=== PATIENT | male | born 1965 | race Caucasian/White ===

== ENCOUNTER 2017-01-05 20:48 | Inpatient (IN) | payer MEDICAID ==
[~2017-01-05] VITALS: Ht 170.2 cm; Wt 71.5 kg
[2017-01-05] MEDS ORDERED: SOD CHLORIDE 0.9% 1,000 ML IV STA (21:33)
[2017-01-05 22:13] LABS: BASOPHILS % 0.5 % (0.0-2.0); EOSINOPHILS # 0.1 10^3/ul (0.0-0.5); EOSINOPHILS % 1.2 % (0.0-7.0); HEMATOCRIT 30.5 % (42.0-52.0); HEMOGLOBIN 10.9 g/dl (14.0-18.0); LYMPHOCYTES # 0.9 10^3/ul (0.8-2.9); LYMPHOCYTES % 21.9 % (15.0-51.0); MEAN CORPUSCULAR HEMOGLOBIN 28.4 pg (29.0-33.0); MEAN CORPUSCULAR HGB CONC 35.7 g/dl (32.0-37.0); MEAN CORPUSCULAR VOLUME 79.4 fl (82.0-101.0); MEAN PLATELET VOLUME 10.7 fl (7.4-10.4); MONOCYTE # 0.3 10^3/ul (0.3-0.9); MONOCYTES % 7.6 % (0.0-11.0); NEUTROPHIL # 2.8 10^3/ul (1.6-7.5); NEUTROPHILS % 68.6 % (39.0-77.0); PLATELET COUNT 103 10^3/UL (140-415); POSITIVE DIFF @See below; RED BLOOD COUNT 3.84 10^6/ul (4.70-6.10); WHITE BLOOD COUNT 4.1 10^3/ul (4.8-10.8)
--- NOTE | 2017-01-05 22:17 | ERA ---
ER Documentation Chief Complaint Date/Time DATE: 01/05/17 TIME: 22:14 Chief Complaint yellow eyes x 1 month, painful hands and both feet HPI Patient presents with a chief complaint of yellowing of the eyes 1 month. Patient also complains of stomach distention that comes and goes for the past 2 weeks. Patient is a chronic alcohol user. Admits to drinking every day and has no preference on alcoholic beverage. Denies recreational drug use. Has not been evaluated for this condition. Also complains of minimal abdominal pain. Denies fever, chills, nausea, vomiting, recent travel, chest pain, shortness of breath. Patient does not take any medications. ROS All systems reviewed and are negative except as per history of present illness. Allergies Allergies: Coded Allergies: No Known Allergy (Unverified , 08/20/14) PMhx/Soc Medical and Surgical Hx: pt denies Medical Hx, pt denies Surgical Hx Hx Alcohol Use: Yes Hx Substance Use: No Hx Tobacco Use: No Smoking Status: Never smoker Physical Exam Vitals Vital Signs Date Time Temp Pulse Resp B/P Pulse Ox O2 Delivery O2 Flow Rate FiO2 01/05/17 20:51 97.5 88 20 161/82 100 Physical Exam Const: 51-year-old male in no acute distress Head: Atraumatic Eyes: Normal Conjunctiva ENT: Jaundice. Normal External Ears, Nose and Mouth. Neck: Full range of motion..~ No meningismus. Resp: Clear to auscultation bilaterally Cardio: Regular rate and rhythm, no murmurs Abd: Mild tenderness in the right upper quadrant. Liver not palpated. Soft , non tender, non distended. Normal bowel sounds Skin: Diffuse jaundice. No petechiae or rashes Back: No midline or flank tenderness Ext: No cyanosis, or edema Neur: Awake and alert Psych: Normal Mood and Affect Result Diagram: 01/05/17219901/05/172199 Results 24 hrs Laboratory Tests Test 01/05/17 22:00 01/05/17 22:45 White Blood Count 4.110^3/ul Red Blood Count 3.8410^6/ul Hemoglobin 10.9g/dl Hematocrit 30.5% Mean Corpuscular Volume 79.4fl Mean Corpuscular Hemoglobin 28.4pg Mean Corpuscular Hemoglobin Concent 35.7g/dl Red Cell Distribution Width 19.0% Platelet Count 79553^3/UL Mean Platelet Volume 10.7fl Neutrophils % 68.6% Lymphocytes % 21.9% Monocytes % 7.6% Eosinophils % 1.2% Basophils % 0.5% Nucleated Red Blood Cells % 0.0/100WBC Neutrophils # 2.810^3/ul Lymphocytes # 0.910^3/ul Monocytes # 0.310^3/ul Eosinophils # 0.110^3/ul Basophils # 0.010^3/ul Nucleated Red Blood Cells # 0.010^3/ul Prothrombin Time 20.4Sec Prothrombin Time Ratio 1.6 INR International Normalized Ratio 1.73 Activated Partial Thromboplast Time 45.4Sec Sodium Level 137mmol/L Potassium Level 3.2mmol/L Chloride Level 96mmol/L Carbon Dioxide Level 26mmol/L Anion Gap 18 Blood Urea Nitrogen 11mg/dl Creatinine 0.83mg/dl Glucose Level 91mg/dl Calcium Level 8.0mg/dl Total Bilirubin 8.5mg/dl Direct Bilirubin 6.90mg/dl Indirect Bilirubin 1.6mg/dl Aspartate Amino Transf (AST/SGOT) 302IU/L Alanine Aminotransferase (ALT/SGPT) 132IU/L Alkaline Phosphatase 224IU/L Total Protein 6.8g/dl Albumin 3.0g/dl Globulin 3.80g/dl Albumin/Globulin Ratio 0.78 Lipase 60U/L Urine Color ALISON Urine Clarity SLIGHTLY CLOUDY Urine pH 6.0 Urine Specific [place] 1.010 Urine Ketones TRACEmg/dL Urine Nitrite NEGATIVEmg/dL Urine Bilirubin 2+mg/dL Urine Urobilinogen 1+mg/dL Urine Leukocyte Esterase NEGATIVELeu/ul Urine Microscopic RBC 1/HPF Urine Microscopic WBC 3/HPF Urine Bacteria FEW/HPF Urine Mucus FEW/HPF Urine Hemoglobin NEGATIVEmg/dL Urine Glucose NEGATIVEmg/dL Urine Total Protein NEGATIVEmg/dl Current Medications Medications (Trade) Dose Ordered Sig/Sue Route PRN Reason Start Time Stop Time Status Last Admin Dose Admin Sodium Chloride (NS) 1,000 ml @ 1,000 mls/hr Q1H STAT IV 01/05/17 21:33 01/05/17 22:32 DC 01/05/17 21:52 Procedures/MDM Patient is presenting with a one-month history of becoming more yellow and mild abdominal tenderness 2 weeks. Due to the patient's abdominal tenderness we will go ahead and get a workup including CBC, CMP, lipase, ultrasound of the right upper quadrant, urinalysis. Results of the labs were as follows: PT 20.4 , white blood cell 4.1, MCV 79.4, platelet count 103, potassium 3.2, anion gap 18, calcium 8, total bilirubin 8.5, AST 302, ALT 132, alk phos 224, albumin 3.0. Urinalysis revealed 2+ bilirubin, trace ketones and trace white blood cells. Results of the ultrasound read by the radiologist given the following impression: IMPRESSION: 1. Gallbladder wall thickening and mild pericholecystic fluid, but no evidence of cholelithiasis. These findings are nonspecific, but may relate to acalculous cholecystitis, liver failure, heart failure, or pancreatitis. 2. No biliary dilatation. 3. Hepatomegaly and fatty infiltration of the liver. I presented the case to my attending Dr. Miramontes. He will be taken over the case at this time. Departure Diagnosis: Primary Impression: Multiple complaints Additional Impressions: Alcohol abuse Liver failure Qualified Code: K72.90 - Liver failure without hepatic coma, unspecified chronicity Condition: Stable Additional Instructions: Patient care being transferred to PABLO Alaniz PA-C Jan 05, 2017 22:17
--- NOTE | 2017-01-05 22:26 | RADRPT ---
PROCEDURE: Right upper quadrant ultrasound. CLINICAL INDICATION: Abdominal pain. TECHNIQUE: Multiple real-time longitudinal and transverse images of the right upper quadrant of th e abdomen were acquired utilizing a curved array transducer. Images were reviewed on a high-resoluti on PACS workstation. COMPARISON: None. FINDINGS: The pancreas head and body are unremarkable. The pancreas tail is not well seen. The liver is echogenic. The liver measures 22.1 cm in length. No hepatic lesion or intrahepatic bi liary ductal dilatation is seen. The portal vein is patent with hepatopetal flow. No gallstones or sludge are seen within the gallbladder lumen. The gallbladder wall is mildly thick ened. There is mild pericholecystic fluid. The common bile duct measures 6 mm in diameter, not dila valarie. The right kidney measures 9.8 cm in length. Renal echogenicity is normal. There is no hydronephros is, urinary calculus, or renal mass. The visualized portions of the aorta and IVC are unremarkable. IMPRESSION: 1. Gallbladder wall thickening and mild pericholecystic fluid, but no evidence of cholelithiasis. T hese findings are nonspecific, but may relate to acalculous cholecystitis, liver failure, heart fail ure, or pancreatitis. 2. No biliary dilatation. 3. Hepatomegaly and fatty infiltration of the liver. RPTAT: HTAR .Osiel Ribeiro MD, MD Date Time Electronically viewed and signed by .Osiel Ribeiro MD, on 01/05/2017 22:25 .R/
[2017-01-05 22:27] LABS: INR 1.73; PROTIME 20.4 Sec (12.2-14.2); PT RATIO 1.6
[2017-01-05 22:28] LABS: PARTIAL THROMBOPLASTIN TIME 45.4 Sec (25.0-35.0)
[2017-01-05 22:35] LABS: ALBUMIN/GLOBULIN RATIO 0.78; BILIRUBIN,DIRECT 6.9 mg/dl (0.00-0.20); BILIRUBIN,INDIRECT 1.6 mg/dl (0-1.1); BILIRUBIN,TOTAL 8.5 mg/dl (0.2-1.3); CREATININE 0.83 mg/dl (0.61-1.24); POTASSIUM 3.2 mmol/L (3.5-5.1); TOTAL PROTEIN 6.8 g/dl (6.1-8.1)
[2017-01-06 00:06] LABS: ADD UMIC NO; UR ASCORBIC ACID NEGATIVE (NEGATIVE); UR BACTERIA FEW /HPF (NONE SEEN); UR BILIRUBIN (Dip) 2+ mg/dL (NEGATIVE); UR BLOOD (Dip) NEGATIVE (NEGATIVE); UR CLARITY SLIGHTLY CLOUDY (CLEAR); UR COLOR AMBER (YELLOW); UR GLUCOSE (Dip) NEGATIVE (NEGATIVE); UR KETONES (Dip) TRACE mg/dL (NEGATIVE); UR LEUKOCYTE ESTERASE (Dip) NEGATIVE Leu/ul (NEGATIVE); UR MUCUS FEW /HPF (NONE SEEN); UR NITRITE (Dip) NEGATIVE (NEGATIVE); UR RBC 1 /HPF (0-5); UR TOTAL PROTEIN (Dip) NEGATIVE (NEGATIVE); UR UROBILINOGEN (Dip) 1+ mg/dL (NEGATIVE)
[2017-01-06] MEDS ORDERED: PIPER-TAZO 3.375 GM IV (PMX) 100 ML IVPB ONE (00:30)
[2017-01-06 00:36] VITALS: TEMP 97.7
[2017-01-06 01:21] VITALS: BP 129/63; PULSE 74; RESP 18; Ht 170.2 cm; Wt 71.5 kg
[2017-01-06] MEDS ORDERED: NACL 0.9% 3 ML SYG IV SCH (01:30)
[2017-01-06] MEDS ORDERED: ONDANSETRON 4 MG INJ IV PRN (01:30)
[2017-01-06] MEDS ORDERED: morphine 2 MG INJ IV PRN (01:30)
[2017-01-06] MEDS ORDERED: ACETAMINOPHEN 325 MG TAB PO PRN (01:30)
[2017-01-06] MEDS ORDERED: BISACODYL (EC) 5 MG TAB PO PRN (01:30)
[2017-01-06] MEDS ORDERED: DOCUSATE SODIUM 100 MG CAP PO PRN (01:30)
[2017-01-06] MEDS: SOD CHLORIDE 0.9% 1,000 ML IV SCH ×2 (01:50→14:43)
[2017-01-06] MEDS ORDERED: LORAZEPAM 2 MG INJ IM PRN (02:00)
[2017-01-06] MEDS ORDERED: POTASSIUM CHLORIDE 250 ML IVPB ONE (02:00)
[2017-01-06 05:11] LABS: HAAIG REFLEX REFLEX FILED
--- NOTE | 2017-01-06 05:35 | HP ---
Date/Time of Note Date/Time of Note DATE: 01/06/17 TIME: 05:34 Assessment/Plan VTE Prophylaxis VTE Prophylaxis Intervention: SCD's Lines/Catheters IV [facility]ter [facility] (from [facility]): Peripheral IV Assessment/Plan Chief Complaint/Hosp Course This is a 51-year-old male being admitted to the [facility] floor for: #1 acalculous cholecystitis: Abdominal ultrasound: Gallbladder wall thickening and mild pericholecystic fluid, but no evidence of cholelithiasis. These findings are nonspecific, but may relate to acalculous cholecystitis, liver failure, heart failure, or pancreatitis. At the current time we will treat with Zosyn IV. Keep the patient n.p.o. Surgery on-call was consulted by the ED physician. There however is no signs of any fevers or elevated white blood cell count at this time. This likely could also be one of the other underlying etiologies as stated in the ultrasound read. I will be obtaining an MRCP as well as a complete abdominal ultrasound to further evaluate. We will also obtain a GI consult as well. #2 Painless jaundice: Patient appears to have an obstructive pattern with his LFTs and elevated bilirubin. Ultrasound did not show any signs of biliary dilatation or gallstones. Surgery has already been consulted for possible acalculous cholecystitis. I will also order an MRCP to further evaluate as well as an ultrasound complete of the abdomen. Patient does have a significant history of alcohol use. I will be ordering hepatitis panel as well as additional hepatic/GI set of labs. Depending on the findings patient may need a liver biopsy as well. #3 alcohol abuse: Patient has a significant alcohol history. At the current time he does not appear to be in any withdrawal symptoms or DTs. I will start him on Ativan 1 mg every 6 hours as needed for withdrawal. I will also put him on a banana bag daily as well as Librium. #4 Microcytic anemia: We will check iron studies this likely could be related to patient's chronic alcohol use. #5 Elevated blood pressure readings: We will continue to monitor for signs of hypertension and start medications if indicated. #6 Abnormal coagulation studies: INR 1.7 and elevated PTT and PT this likely to be secondary to underlying possible liver disease. Will initiate further workup for underlying liver disease as per #2, if negative, proceed further with hematology/oncology if indicated. #7 DVT and GI prophylaxis: SCDs, Protonix Further treatment strategy will be implemented as per the clinical course Problems: HPI/ROS Admit Date/Time Admit Date/Time Jan 06, 2017 at 00:11 Hx of Present Illness Chief complaint: Yellow eyes 1 month This is a 51-year-old male who presents with a chief complaint of yellowing of the eyes 1 month. Patient also complains of stomach distention that comes and goes for the past 2 weeks. Patient is a chronic alcohol user. Admits to drinking every day and has no preference on alcoholic beverage. Denies recreational drug use. Has not been evaluated for this condition. Also complains of minimal abdominal pain. Denies fever, chills, nausea, vomiting, recent travel, chest pain, shortness of breath. Patient does not take any medications. He states his last alcoholic drink was yesterday. Allergies: NKDA Medications: None ROS Const: As per HPI Eyes : As per HPI ENT: No pain, sore throat, congestion, congestion, dysphagia or discharge Respiratory: No shortness of breath, cough, sputum, wheezing, or pleuritic pain Cardiovascular: No chest pain, palpitation, PND, or edema GI : As per HPI Genitourinary: No dysuria, hematuria, flank pain , discharge or CVA tenderness Musculoskeletal: No joint pain, back pain, neck pain, restricted range of motion in neck or joints Skin: No rash, bruising or hives Neuro: No headache, dizziness, syncope, seizure, focal weakness Endocrine: No polyuria, polydipsia, temperature intolerance Psych: No hallucination, depression, anxiety or suicidal ideation PMH/Family/Social Past Medical History Medical History: no pertinent history Past Surgical History Past Surgical Hx: no surgical history Family History Significant Family History: no pertinent family hx Social History Alcohol Use: heavy (Patient is a daily drinker for the last 30 years) Smoking Status: Never smoker Drug Use: none Exam/Review of Systems Vital Signs Vitals Vital Signs Date Time Temp Pulse Resp B/P Pulse Ox O2 Delivery O2 Flow Rate FiO2 01/06/17 01:21 97.4 74 18 129/63 100 Room Air Intake and Output 01/05/17 01/05/17 01/06/17 15:00 23:00 07:00 Intake Total 381 ml Balance 381 ml Exam Exam General: Patient is well-developed well-nourished The patient is alert oriented -3 lying comfortably in bed. HEENT: Atraumatic, normocephalic. Mild scleral icterus noted bilaterally Neck: Supple with full range of motion. No rigidity or meningismus Chest: Nontender Lungs: Clear to auscultation bilaterally no crackles rales or wheezing Heart: Normal S1-S2, Regular rhythm and rate. No murmur, S3, or S4 Abdomen: Soft, mild tenderness to palpation of the right upper quadrant, hepatomegaly noted on palpation, mild distention, normal bowel sounds. Extremities: Normal to inspection, no edema no cyanosis Neurologic: Normal mental status, speech normal, cranial nerves II through XII are intact, motor and sensory are intact, no focal weakness, no asterixis noted Additional Comments PROCEDURE: Right upper quadrant ultrasound. CLINICAL INDICATION: Abdominal pain. TECHNIQUE: Multiple real-time longitudinal and transverse images of the right upper quadrant of the abdomen were acquired utilizing a curved array transducer. Images were reviewed on a high-resolution PACS workstation. COMPARISON: None. FINDINGS: The pancreas head and body are unremarkable. The pancreas tail is not well seen. The liver is echogenic. The liver measures 22.1 cm in length. No hepatic lesion or intrahepatic biliary ductal dilatation is seen. The portal vein is patent with hepatopetal flow. No gallstones or sludge are seen within the gallbladder lumen. The gallbladder wall is mildly thickened. There is mild pericholecystic fluid. The common bile duct measures 6 mm in diameter, not dilated. The right kidney measures 9.8 cm in length. Renal echogenicity is normal. There is no hydronephrosis, urinary calculus, or renal mass. The visualized portions of the aorta and IVC are unremarkable. IMPRESSION: 1. Gallbladder wall thickening and mild pericholecystic fluid, but no evidence of cholelithiasis. These findings are nonspecific, but may relate to acalculous cholecystitis, liver failure, heart failure, or pancreatitis. 2. No biliary dilatation. 3. Hepatomegaly and fatty infiltration of the liver. RPTAT: HTAR .Osiel Ribeiro MD, Date Time Electronically viewed and signed by .Osiel Ribeiro MD, on 01/05/2017 22:25 Labs Result Diagram: 7/25/17 2200 7/25/17 2200 Medications Medications Current Medications Sodium Chloride (NS) 1,000 ml @ 75 mls/hr [id number] IV Last administered on 01/06 01:50; Admin Dose 75 MLS/HR; Start 01/06/17 at 01:23 Ondansetron HCl (Zofran Inj) 4 mg Q6H PRN IV NAUSEA AND/OR VOMITING; Start at 01:30 Acetaminophen (Tylenol Tab) 650 mg Q6H PRN PO PAIN LEVEL 1-3 OR FEVER; Start at 01:30 Morphine Sulfate (morphine) 2 mg Q4H PRN IV SEVERE PAIN LEVEL 7-10; Start 01/06 at 01:30 Docusate Sodium (Colace) 100 mg Q12H PRN PO CONSTIPATION; Start 01/06/17 at 01: 30 Bisacodyl 5 mg 5 mg DAILY PRN PO CONSTIPATION; Start 01/06/17 at 01:30 Piperacillin Sod/ Tazobactam Sod (Zosyn 3.375gm/ 100 ml (Pmx)) 100 ml @ 200 mls /hr Q6 IVPB ; Start 01/06/17 at 06:00 Lorazepam 1 mg 1 mg Q6H PRN IM AGITATION/ANXIETY; Start 01/06/17 at 02:00 Potassium Chloride 250 ml @ 62.5 mls/hr ONCE ONCE IVPB Last administered on 02:33; Admin Dose 62.5 MLS/HR; Start 01/06/17 at 02:00; Stop 01/06/17 at 05:59 Multivitamins/ Thiamine HCl/ Folic Acid/Sodium Chloride (Mvi Adult/ Vitamin B1/ Folic Acid/NS) 1,011.2 ml @ 125 mls/ hr DAILY@09 IVPB ; Start 01/06/17 at 09:00 SARAH GILES Jan 06, 2017 05:35
[2017-01-06 05:40] LABS: IRON 114 ug/dl (35-150)
[2017-01-06] MEDS: PIPER-TAZO 3.375 GM IV (PMX) 100 ML IVPB SCH ×4 (05:40→23:05)
[2017-01-06 05:50] LABS: TOTAL IRON BINDING CAPACITY 220 ug/dl (241-421)
[2017-01-06 06:33] LABS: HEPATITIS B CORE ANTIBODY NEGATIVE (NEGATIVE)
[2017-01-06 06:49] LABS: FOLATE 9.2 ng/ml (2.8-20.0)
--- NOTE | 2017-01-06 07:23 | RADRPT ---
PROCEDURE: US Abdomen limited . CLINICAL INDICATION: Abdominal distension, pain TECHNIQUE: Multiple real-time images were acquired of the patient's abdomen utilizing a high resol ution transducer. COMPARISON: None FINDINGS: There is no evidence of ascites. RPTAT: AA IMPRESSION: No evidence of ascites. .Jas Oseguera MD, MD Date Time Electronically viewed and signed by .Jas Oseguera MD, MD on 01/06/2017 07:23 .S/
--- NOTE | 2017-01-06 07:34 | CONS ---
Date/Time of Note Date/Time of Note DATE: 01/06/17 TIME: 07:25 Assessment/Plan Assessment/Plan Chief Complaint/Hosp Course 1. Transaminitis, hyperbilirubinemia, gallbladder wall thickening, pericholecystic fluid, fatty liver are all probably secondary to alcoholic liver disease/failure. Doubt this is cholecystitis. -Encourage alcoholic cessation and rehab -GI consultation and treatment -Trend labs 2. Alcoholism -Highly encouraged to seek rehab and treatment to prevent further injury 3. Coagulopathy secondary to above -As above -Correct as needed 4. Pancytopenia secondary to above -As above -Consider heme consult 5. Hypoalbuminemia secondary to liver disease, alcoholism, possible malnutrition -As above -Encourage nutritional optimization 6. Electrolyte abnormalities -Replete and correct as needed Thank you very much for consulting me in this patient's care, Problems: Consultation Date/Type/Reason Admit Date/Time Jan 06, 2017 at 00:11 Date of Consultation: Jan 06, 2017 Type of Consultation: General surgical Reason for Consultation Jaundice and icterus Abnormal gallbladder wall thickening and pericholecystic fluid on ultrasound Hyperbilirubinemia Transaminitis Heavy drinker Referring Provider: OLGA COLE Hx of Present Illness Kelvin Erickson is a 51-year-old male heavy drinker who presents with a chief complaint of yellowing of the eyes and skin 2 months. He also reports bloating in the past 2 weeks. Patient is a chronic alcohol user. Admits to drinking every day and has no preference on alcoholic beverage. Denies recreational drug use. Has not been evaluated for this condition. Denies pain. Denies fever, chills, nausea, vomiting, recent travel, chest pain, shortness of breath. Patient does not take any medications. Denies visual or neurologic changes. Denies dysuria or change in bowel habits. Denies trauma or sick contacts. Denies previous history of the same. His workup was identified his vitals to be stable. He has transaminitis and hyperbilirubinemia. WBC is normal. Ultrasound of the abdomen identifies gallbladder wall thickening and pericholecystic fluid with fatty liver however no gallstones. Surgical consult is obtained further evaluation and treatment. Const: As per HPI Eyes : As per HPI ENT: No pain, sore throat, congestion, congestion, dysphagia or discharge Respiratory: No shortness of breath, cough, sputum, wheezing, or pleuritic pain Cardiovascular: No chest pain, palpitation, PND, or edema GI : As per HPI Genitourinary: No dysuria, hematuria, flank pain , discharge or CVA tenderness Musculoskeletal: No joint pain, back pain, neck pain, restricted range of motion in neck or joints Skin: No rash, bruising or hives Neuro: No headache, dizziness, syncope, seizure, focal weakness Endocrine: No polyuria, polydipsia, temperature intolerance Psych: No hallucination, depression, anxiety or suicidal ideation Lymphatics: Nonpalpable nontender Past Medical History Alcoholism Jaundice Icterus Coagulopathy Pancytopenia Hypokalemia Hypoalbuminemia Past Surgical History Past Surgical Hx: no surgical history Family History Significant Family History: no pertinent family hx Social History Alcohol Use: heavy (Patient is a daily drinker for the last 30 years) Smoking Status: Never smoker Drug Use: none Exam/Review of Systems Vital Signs Vitals Vital Signs Date Time Temp Pulse Resp B/P Pulse Ox O2 Delivery O2 Flow Rate FiO2 01/06/17 01:21 97.4 74 18 129/63 100 Room Air Intake and Output 01/05/17 01/05/17 01/06/17 15:00 23:00 07:00 Intake Total 575 ml Balance 575 ml Exam Constitutional: alert, oriented, No distress Psych: nl mood/affect, No anxiety Head: atraumatic, normocephalic, No lacerations Eyes: EOMI, PERRL, icteric ENMT: nl external ears & nose, nl lips & teeth, nl nasal mucosa & septum Neck: non-tender, supple, No jvd Respiratory: normal air movement, No congested cough, No labored breathing Cardiovascular: regular rate and rhythm, No edema Gastrointestinal: distended (Minimal), non-tender, soft, No rebound or guarding Genitourinary - Male: nl penis, nl scrotum Musculoskeletal: nl extremities to inspection, nl gait and stance, No joint tenderness Extremities: normal pulses, No calf tenderness, No cyanosis Neurological: nl mental status, nl speech, nl strength Skin: nl turgor, rash or lesions (Jaundice), No diaphoresis Lymph: nl lymph nodes Results Result Diagram: 01/05/17219901/05/172199 Results 24 hrs Laboratory Tests Test 01/05/17 22:00 01/05/17 22:45 01/06/17 04:35 01/06/17 04:36 White Blood Count 4.1 L Red Blood Count 3.84 L Hemoglobin 10.9 L Hematocrit 30.5 L Mean Corpuscular Volume 79.4 L Mean Corpuscular Hemoglobin 28.4 L Mean Corpuscular Hemoglobin Concent 35.7 Red Cell Distribution Width 19.0 H Platelet Count 103 L Mean Platelet Volume 10.7 H Neutrophils % 68.6 Lymphocytes % 21.9 Monocytes % 7.6 Eosinophils % 1.2 Basophils % 0.5 Nucleated Red Blood Cells % 0.0 Neutrophils # 2.8 Lymphocytes # 0.9 Monocytes # 0.3 Eosinophils # 0.1 Basophils # 0.0 Nucleated Red Blood Cells # 0.0 Prothrombin Time 20.4 H Prothrombin Time Ratio 1.6 INR International Normalized Ratio 1.73 Activated Partial Thromboplast Time 45.4 H Sodium Level 137 Potassium Level 3.2 L Chloride Level 96 L Carbon Dioxide Level 26 Anion Gap 18 H Blood Urea Nitrogen 11 Creatinine 0.83 Glucose Level 91 Calcium Level 8.0 L Total Bilirubin 8.5 H Direct Bilirubin 6.90 H Indirect Bilirubin 1.6 H Aspartate Amino Transf (AST/SGOT) 302 H Alanine Aminotransferase (ALT/SGPT) 132 H Alkaline Phosphatase 224 H Total Protein 6.8 Albumin 3.0 L Globulin 3.80 H Albumin/Globulin Ratio 0.78 Lipase 60 Urine Color ALISON Urine Clarity SLIGHTLY CLOUDY A Urine pH 6.0 Urine Specific [place] 1.010 Urine Ketones TRACE A Urine Nitrite NEGATIVE Urine Bilirubin 2+ H Urine Urobilinogen 1+ H Urine Leukocyte Esterase NEGATIVE Urine Microscopic RBC 1 Urine Microscopic WBC 3 Urine Bacteria FEW A Urine Mucus FEW A Urine Hemoglobin NEGATIVE Urine Glucose NEGATIVE Urine Total Protein NEGATIVE Vitamin B12 Level 968 H Folate 9.2 Ethyl Alcohol Level 82.0 Iron Level 114 Total Iron Binding Capacity 220 L Percent Iron Saturation 52 Ferritin 184.0 Hepatitis A Antibody Total POSITIVE H Hepatitis B Surface Antigen NEGATIVE Hepatitis B Core Total Antibody NEGATIVE Hepatitis C Antibody NEGATIVE Medications Medications Current Medications Sodium Chloride (NS) 1,000 ml @ 75 mls/hr [id number] IV Last administered on 01/06t 01:50; Admin Dose 75 MLS/HR; Start 01/06/17 at 01:23 Ondansetron HCl (Zofran Inj) 4 mg Q6H PRN IV NAUSEA AND/OR VOMITING; Start at 01:30 Acetaminophen (Tylenol Tab) 650 mg Q6H PRN PO PAIN LEVEL 1-3 OR FEVER; Start at 01:30 Morphine Sulfate (morphine) 2 mg Q4H PRN IV SEVERE PAIN LEVEL 7-10; Start 01/06 at 01:30 Docusate Sodium (Colace) 100 mg Q12H PRN PO CONSTIPATION; Start 01/06/17 at 01: 30 Bisacodyl 5 mg 5 mg DAILY PRN PO CONSTIPATION; Start 01/06/17 at 01:30 Piperacillin Sod/ Tazobactam Sod (Zosyn 3.375gm/ 100 ml (Pmx)) 100 ml @ 200 mls /hr Q6 IVPB Last administered on 01/06/17t 05:40; Admin Dose 200 MLS/HR; Start 01/06/17 at 06:00 Lorazepam 1 mg 1 mg Q6H PRN IM AGITATION/ANXIETY; Start 01/06/17 at 02:00 Multivitamins/ Thiamine HCl/ Folic Acid/Sodium Chloride (Mvi Adult/ Vitamin B1/ Folic Acid/NS) 1,011.2 ml @ 125 mls/ hr DAILY@09 IVPB ; Start 01/06/17 at 09:00 Chlordiazepoxide (Librium) 50 mg TID PO ; Start 01/06/17 at 09:00; Stop at 08:59 Chlordiazepoxide (Librium) 25 mg QID PO ; Start 01/07/17 at 09:00; Stop at 08:59 Chlordiazepoxide (Librium) 25 mg TID PO ; Start 01/08/17 at 09:00; Stop at 08:59 DOROTHEA MOSER MD Jan 06, 2017 07:34
--- NOTE | 2017-01-06 07:41 | RADRPT ---
PROCEDURE: XR Chest. CLINICAL INDICATION: preop TECHNIQUE: PA and Lateral views of the chest were obtained. COMPARISON: None. FINDINGS: The cardiomediastinal silhouette is within normal limits. The lungs are clear. No signs of pleural f luid or pneumothorax are seen. The osseous structures and soft tissues are unremarkable, except for degenerative changes of the visualized spine.. IMPRESSION: No evidence for active cardiopulmonary disease. RPTAT: PP Physician Kaylin Date Time Electronically viewed and signed by Mikey Baldwin Physician on 01/06/2017 07:40 RC/
[2017-01-06 07:55] VITALS: BP 126/72; RESP 16
[2017-01-06] MEDS: MULTIVITAMINS 10 ML, THIAMINE 100 MG, FOLIC ACID 1 MG in SOD CHLORIDE 0.9% 1,000 ML IVPB SCH (10:41)
[2017-01-06] MEDS: CHLORDIAZEPOXIDE 25 MG CAP PO SCH ×3 (10:41→20:23)
--- NOTE | 2017-01-06 12:22 | RADRPT ---
PROCEDURE: MR Abdomen without contrast and MRCP. CLINICAL INDICATION: Right upper quadrant abdominal pain. TECHNIQUE: MRI abdomen in conjunction with MRCP was performed without the administration of intrav enous contrast. COMPARISON: Ultrasound, 01/05/2017. FINDINGS: The liver is enlarged measuring 22 cm in craniocaudal length. There is diffuse gallbladder wall thickening without discrete stones. No intra- or extra-hepatic bi liary dilatation is identified. There is mild peripancreatic fluid without a loculated fluid collection. Pancreatic duct is nondila valarie. The spleen is enlarged measuring 16.5 cm in craniocaudal length Renal signal is symmetric without hydronephrosis. The visualized bowel is normal in caliber without mural thickening. Marrow signal is unremarkable. IMPRESSION: Nonspecific diffuse gallbladder wall thickening without stones. Biliary system is nondilated. No r adiologic evidence of choledocholithiasis. Mild fluid in the peripancreatic space. Recommend laboratory correlation for possible early pancrea titis. Hepatosplenomegaly. RPTAT: EE .Rocky Foley MD, MD Date Time Electronically viewed and signed by .Rocky Foley MD, on 01/06/2017 12:27 .C/
[2017-01-06 20:00] VITALS: BP 115/61; RESP 20
[2017-01-07] MEDS: SOD CHLORIDE 0.9% 1,000 ML IV SCH ×2 (05:05→08:59)
[2017-01-07] MEDS: PIPER-TAZO 3.375 GM IV (PMX) 100 ML IVPB SCH ×3 (05:05→17:29)
[2017-01-07 05:35] LABS: ABNORMAL IP MESSAGE 1; HEMATOCRIT 28.3 % (42.0-52.0); HEMOGLOBIN 9.9 g/dl (14.0-18.0); MEAN CORPUSCULAR HEMOGLOBIN 28.1 pg (29.0-33.0); MEAN CORPUSCULAR VOLUME 80.4 fl (82.0-101.0); MEAN PLATELET VOLUME 10.5 fl (7.4-10.4); PLATELET COUNT 75 10^3/UL (140-415); POSITIVE DIFF @See below; RED BLOOD COUNT 3.52 10^6/ul (4.70-6.10); RED CELL DISTRIBUTION WIDTH 19.7 % (11.5-14.5)
[2017-01-07 06:32] LABS: ALANINE AMINOTRANSFERASE 91 IU/L (13-69); ALBUMIN 2.2 g/dl (3.3-4.9); ALKALINE PHOSPHATASE 186 IU/L (42-121); ANION GAP 10 (8-16); ASPARTATE AMINO TRANSFERASE 209 IU/L (15-46); BILIRUBIN,INDIRECT 1.5 mg/dl (0-1.1); BILIRUBIN,TOTAL 8.1 mg/dl (0.2-1.3); BLOOD UREA NITROGEN 7 mg/dl (7-20); CARBON DIOXIDE 26 mmol/L (21-31); CHLORIDE 104 mmol/L (97-110); CHOL/HDL RATIO 9.8 RATIO; CHOLESTEROL 118 mg/dl (100-200); GLUCOSE 72 mg/dl (70-220); HDL CHOLESTEROL 12 mg/dl (28-71); PHOSPHORUS 2.8 mg/dl (2.5-4.9); SODIUM 137 mmol/L (135-144); TOTAL PROTEIN 5.3 g/dl (6.1-8.1); TRIGLYCERIDES 295 mg/dl (0-149)
[2017-01-07 06:46] LABS: MAGNESIUM 1.5 mg/dl (1.7-2.5)
[2017-01-07 07:49] LABS: T3 UPTAKE > 65.0 % (23.5-40.5)
[2017-01-07 07:54] LABS: THYROID STIMULATING HORMONE 0.659 MIU/L (0.465-4.680)
[2017-01-07 08:23] VITALS: BP 120/66; RESP 16
--- NOTE | 2017-01-07 08:23 | PN ---
Date/Time of Note Date/Time of Note DATE: 01/07/17 TIME: 08:08 Assessment/Plan Lines/Catheters IV Catheter Type (from [facility]): Peripheral IV Ascencio in Place (from [facility]): No Assessment/Plan Chief Complaint/Hosp Course 1. Transaminitis, hyperbilirubinemia, gallbladder wall thickening, pericholecystic fluid, fatty liver are all probably secondary to alcoholic liver disease/failure. Patient afebrile, no abdominal pain,negative do's, unlikely cholecystitis.Transaminitis improving -Encourage alcoholic cessation and rehab -GI consultation and treatment -Trend labs -no surgical intervention recommended at this time, will continue to monitor 2. Alcoholism -Highly encouraged to seek rehab and treatment to prevent further injury 3. Coagulopathy secondary to above -As above -Correct as needed 4. Pancytopenia secondary to above -supportive -As above -Consider heme consult 5. Hypoalbuminemia secondary to liver disease, alcoholism, possible malnutrition -As above -Encourage nutritional optimization 6. Hypokalemia -Replete and correct as needed 7. Hypocalcemia with hypoalbuminemia -nutrition optimization 8. Constipation -optimize bowel regimen Patient seen and examined in collaboration with Dr.Samuel Faulkner. Problems: Subjective 24 Hr Interval Summary Feeling well. No c/o abdominal pain. No n/v/d. +flatus, no bm. constipation. No fevers, chills, cp, palpitations, sob, cough, dysuria, tran, sz. Exam/Review of Systems Vital Signs Vitals Vital Signs Date Time Temp Pulse Resp B/P Pulse Ox O2 Delivery O2 Flow Rate FiO2 01/06/17 20:00 97.8 68 20 115/61 100 01/06/17 01:21 Room Air Intake and Output 01/06/17 01/06/17 01/07/17 15:00 23:00 07:00 Intake Total 475 ml 850 ml 654 ml Output Total 700 ml 1100 ml Balance 475 ml 150 ml -446 ml Exam Free Text/Dictation Constitutional: alert, oriented, No distress Psych: nl mood/affect, Head: atraumatic, normocephalic, Eyes: EOMI, PERRL, icteric ENMT: nl external ears & nose, nl lips & teeth, nl nasal mucosa & septum Neck: non-tender, supple, Respiratory: normal air movement, Cardiovascular: regular rate and rhythm, No edema Gastrointestinal: nondistended, non-tender, soft, negative murphys No rebound or guarding Genitourinary - Male: nl penis, nl scrotum Musculoskeletal: nl extremities to inspection, nl gait and stance, No joint tenderness Extremities: normal pulses, No calf tenderness, No cyanosis Neurological: nl mental status, nl speech, nl strength Skin: nl turgor, rash or lesions (Jaundice), No diaphoresis Lymph: nl lymph nodes Results Result Diagram: 01/07/17 0425 01/07/17 0425 KRYSTIN FOLWER NP Jan 07, 2017 08:18
[2017-01-07] MEDS: CHLORDIAZEPOXIDE 25 MG CAP PO SCH ×4 (08:57→20:36)
[2017-01-07] MEDS: MULTIVITAMINS 10 ML, THIAMINE 100 MG, FOLIC ACID 1 MG in SOD CHLORIDE 0.9% 1,000 ML IVPB SCH (08:57)
[2017-01-07 09:43] LABS: ANISOCYTOSIS 2+ (0-0); BASOPHILS % (M) 3 % (0-2); EOSINOPHILS % (M) 6 % (0-7); GIANT THROMBO% (M) 3 % (0-0); HYPOCHROMASIA 3+ (0-0); MONOCYTES % (M) 3 % (0-11); PLATELET ESTIMATE SIG DECREASED; POIKILOCYTOSIS 1+ (0-0); POLYCHROMASIA 3+ (0-0); TARGET CELLS 2+ (0-0)
--- NOTE | 2017-01-07 10:17 | PN ---
Date/Time of Note Date/Time of Note DATE: 01/07/17 TIME: 10:16 Assessment/Plan VTE Prophylaxis VTE Prophylaxis Intervention: SCD's Lines/Catheters IV C[facility]ter Type (from [facility]): Peripheral IV Urinary Cath still in place: No Assessment/Plan Chief Complaint/Hosp Course 51-year-old male being admitted to the [facility] floor for: #1 acalculous cholecystitis: Abdominal ultrasound: Gallbladder wall thickening and mild pericholecystic fluid, but no evidence of cholelithiasis. These findings are nonspecific, but may relate to acalculous cholecystitis, liver failure, heart failure, or pancreatitis. MRCP negative for common bile duct stones. Surgery team has evaluated the patient.` -For now continue Zosyn IV. Keep the patient n.p.o. -We will also consult GI as well, per surgery team medical management for now #2 Painless jaundice: Patient appears to have an obstructive pattern with his LFTs and elevated bilirubin, both total and direct. Ultrasound did not show any signs of biliary dilatation or gallstones. Surgery has already been consulted for possible acalculous cholecystitis. Patient does have a significant history of alcohol use, as well as elevated ethanol levels. -Follow-up hepatitis panel as well as additional hepatic/GI set of labs. Depending on the findings patient may need a liver biopsy as well. #3 alcohol abuse: Patient has a significant alcohol history, again, ethanol level is elevated at the current time he does not appear to be in any withdrawal symptoms or DTs. -Continue Ativan 1 mg every 6 hours as needed for withdrawal, banana bag daily as well as Librium. #4 Microcytic anemia follow-up iron studies this likely could be related to patient's chronic alcohol use. #5 Elevated blood pressure readings: We will continue to monitor for signs of hypertension and start medications if indicated. #6 Abnormal coagulation studies: INR 1.7 and elevated PTT and PT this likely to be secondary to underlying possible liver disease. Will initiate further workup for underlying liver disease as per #2, if negative, proceed further with hematology/oncology if indicated. #7 DVT and GI prophylaxis: SCDs, Protonix Further treatment strategy will be implemented as per the clinical course Problems: Subjective 24 Hr Interval Summary Free Text/Dictation Patient still on banana bag, no acute events overnight. Seen by surgery team this morning. Exam/Review of Systems Vital Signs Vitals Vital Signs Date Time Temp Pulse Resp B/P Pulse Ox O2 Delivery O2 Flow Rate FiO2 01/07/17 08:23 97.9 75 16 120/66 96 01/06/17 01:21 Room Air Intake and Output 01/06/17 01/06/17 01/07/17 15:00 23:00 07:00 Intake Total 475 ml 850 ml 654 ml Output Total 700 ml 1100 ml Balance 475 ml 150 ml -446 ml Exam General: Patient is well-developed well-nourished The patient is alert oriented -3 lying comfortably in bed. HEENT: Atraumatic, normocephalic. Mild scleral icterus noted bilaterally Neck: Supple with full range of motion. No rigidity or meningismus Chest: Nontender Lungs: Clear to auscultation bilaterally no crackles rales or wheezing Heart: Normal S1-S2, Regular rhythm and rate. No murmur, S3, or S4 Abdomen: Soft, mild tenderness to palpation of the right upper quadrant, hepatomegaly noted on palpation, mild distention, normal bowel sounds. Extremities: Normal to inspection, no edema no cyanosis Neurologic: Normal mental status, speech normal, cranial nerves II through XII are intact, motor and sensory are intact, no focal weakness, no asterixis noted Results Result Diagram: 01/07/175 01/07/17424 Results 24 hrs Laboratory Tests Test 01/07/17 04:24 01/07/17 04:25 Hemoglobin A1c 4.8 White Blood Count 2.0 #L Red Blood Count 3.52 L Hemoglobin 9.9 L Hematocrit 28.3 L Mean Corpuscular Volume 80.4 L Mean Corpuscular Hemoglobin 28.1 L Mean Corpuscular Hemoglobin Concent 35.0 Red Cell Distribution Width 19.7 H Platelet Count 75 #L Mean Platelet Volume 10.5 H Neutrophils % Segmented Neutrophils % (Manual) 71 Lymphocytes % Lymphocytes % (Manual) 17 Monocytes % Monocytes % (Manual) 3 Eosinophils % Eosinophils % (Manual) 6 Basophils % Basophils % (Manual) 3 H Nucleated Red Blood Cells % 0.0 Neutrophils # Absolute Lymphocytes (Manual) 0.3 L Lymphocytes # Monocytes # Absolute Monocytes (Manual) 0.0 L Eosinophils # Basophils # Basophils # (Manual) 0.0 Nucleated Red Blood Cells # Smudge Cells % 60 H Thrombocytosis 3 H Platelet Estimate SIG DECREASED Polychromasia 3+ Hypochromasia 3+ Poikilocytosis 1+ Anisocytosis 2+ Macrocytosis 1+ Target Cells 2+ Sodium Level 137 Potassium Level 3.0 L Chloride Level 104 Carbon Dioxide Level 26 Anion Gap 10 # Blood Urea Nitrogen 7 Creatinine 0.80 Glucose Level 72 Calcium Level 7.0 L Phosphorus Level 2.8 Magnesium Level 1.5 L Total Bilirubin 8.1 H Direct Bilirubin 6.60 H Indirect Bilirubin 1.5 H Aspartate Amino Transf (AST/SGOT) 209 H Alanine Aminotransferase (ALT/SGPT) 91 H Alkaline Phosphatase 186 H Total Protein 5.3 #L Albumin 2.2 L Globulin 3.10 Albumin/Globulin Ratio 0.70 Triglycerides Level 295 H Cholesterol Level 118 LDL Cholesterol, Calculated 47 HDL Cholesterol 12 L Cholesterol/HDL Ratio 9.8 Thyroid Stimulating Hormone (TSH) 0.659 Free Thyroxine Index 1.63 Thyroxine (T4) 2.5 L Triiodothyronine (T3) Uptake > 65.0 H Medications Medications Current Medications Sodium Chloride (NS) 1,000 ml @ 75 mls/hr [id number] IV Last administered on 01/07 08:59; Admin Dose 75 MLS/HR; Start 01/06/17 at 01:23 Ondansetron HCl (Zofran Inj) 4 mg Q6H PRN IV NAUSEA AND/OR VOMITING; Start at 01:30 Acetaminophen (Tylenol Tab) 650 mg Q6H PRN PO PAIN LEVEL 1-3 OR FEVER; Start at 01:30 Morphine Sulfate (morphine) 2 mg Q4H PRN IV SEVERE PAIN LEVEL 7-10; Start 01/06 at 01:30 Docusate Sodium (Colace) 100 mg Q12H PRN PO CONSTIPATION; Start 01/06/17 at 01: 30 Bisacodyl 5 mg 5 mg DAILY PRN PO CONSTIPATION; Start 01/06/17 at 01:30 Piperacillin Sod/ Tazobactam Sod (Zosyn 3.375gm/ 100 ml (Pmx)) 100 ml @ 200 mls /hr Q6 IVPB Last administered on 01/07/17 05:05; Admin Dose 200 MLS/HR; Start 01/06/17 at 06:00 Lorazepam 1 mg 1 mg Q6H PRN IM AGITATION/ANXIETY; Start 01/06/17 at 02:00 Multivitamins/ Thiamine HCl/ Folic Acid/Sodium Chloride (Mvi Adult/ Vitamin B1/ Folic Acid/NS) 1,011.2 ml @ 125 mls/ hr DAILY@09 IVPB Last administered on 08:57; Admin Dose 125 MLS/HR; Start 01/06/17 at 09:00 Chlordiazepoxide (Librium) 25 mg QID PO Last administered on 01/07/17 08:57; Admin Dose 25 MG; Start 01/07/17 at 09:00; Stop 01/08/17 at 08:59 Chlordiazepoxide 25 mg 25 mg TID PO ; Start 01/08/17 at 09:00; Stop 01/09/17 at 08:59 Magnesium Sulfate 50 ml @ 25 mls/hr ONCE ONCE IVPB ; Start 01/07/17 at 11:00; Stop 01/07/17 at 12:59 Potassium Chloride (KCl 40 MEQ/250 ML NS) 250 ml @ 62.5 mls/hr Q4H IVPB ; Start 01/07/17 at 11:00; Stop 01/07/17 at 18:59 MERLIN JOSE Jan 07, 2017 10:17 MERLIN JOSE Jan 07, 2017 10:17
[2017-01-07] MEDS ORDERED: MAGNESIUM SULFATE 2 GM/50 ML 50 ML IVPB ONE (11:00)
[2017-01-07] MEDS: POTASSIUM CHLORIDE 250 ML IVPB SCH ×2 (11:40→16:00)
[2017-01-07 12:57] LABS: ANA SCREEN NEGATIVE (NEGATIVE); SMOOTH MUSCLE AB TITER 1:20 titer (<1:20)
--- NOTE | 2017-01-07 13:21 | CONS ---
Date/Time of Note Date/Time of Note DATE: 01/07/17 TIME: 13:06 Assessment/Plan Assessment/Plan Additional Assessment/Plan Assessment * Jaundice T/C alcoholic hepatitis vs autoimmune hepatitis vs others * alcoholism chronic Plan * Trend liver enzymes * Continue present medications * Maddrey score is 45 and patient will benefit from steroid therapy for 30 days * Will request MORRIS,ANSA,ANCA,smooth muscle antibody titer * Counselled on abstinence of alcohol * Further orders will depend on clinical course Consultation Date/Type/Reason Admit Date/Time Jan 06, 2017 at 00:11 Date of Consultation: Jan 07, 2017 Type of Consultation: gastroenterology Reason for Consultation jaundice Referring Provider: SARAH GILES Hx of Present Illness 51 year male heavy alcoholic drinker for the past 30 years ago presented in the emergency room complaining of abdominal distension and jaundice .Present condition started 2 months ago as yellow sclera progressive having yellow skin.No consultation but patient keep drinking 1/2 bottle tequila daily.He denied any fever nor hematemesis until 1 week prior to admission,abdominal pain and distension was noted.Pain is colicky, diffuse non radiating with associated dark colored urine thus consult.He denies any history of travel,hematochezia, hematemesis,fever nor chest pain.Emergency room course revealed WBC 2.0, hemoglobin 9.9.hematocrit 28.3 platelet 75 ,PT 20.4 INR 1.73 Total bilirubin 8.1.AST 209 ALT 91 ,alkaline phosphatase 186 iron 114,TIBC 210 MRCP Nonspecific diffuse gallbladder wall thickening without stones. Biliary system is nondilated. No radiologic evidence of choledocholithiasis.Mild fluid in the peripancreatic space. Recommend laboratory correlation for possible early pancreatitis.Hepatosplenomegaly. ultrasound . Gallbladder wall thickening and mild pericholecystic fluid, but no evidence of cholelithiasis. These findings are nonspecific, but may relate to acalculous cholecystitis, liver failure, heart failure, or pancreatitis.. No biliary dilatation. Hepatomegaly and fatty infiltration of the liver. Presently,he denies any abdominal pain ,hematemesis,nor hematochezia Constitutional: improved Eyes: no complaints ENT: no complaints Respiratory: no complaints Cardiovascular: no complaints Gastrointestinal: nausea Genitourinary: no complaints Musculoskeletal: no complaints Skin: no complaints Neurologic: no complaints Endocrine: no complaints Lymphatic: no complaints Psychological: nl mood/affect, No anxiety Immunologic: no complaints Past Medical History Medical History: no pertinent history Past Surgical History Past Surgical Hx: no surgical history Social History Alcohol Use: heavy (Patient is a daily drinker for the last 30 years) Smoking Status: Never smoker Drug Use: none Exam/Review of Systems Vital Signs Vitals Vital Signs Date Time Temp Pulse Resp B/P Pulse Ox O2 Delivery O2 Flow Rate FiO2 01/07/17 08:23 97.9 75 16 120/66 96 01/06/17 01:21 Room Air Intake and Output 01/06/17 01/06/17 01/07/17 15:00 23:00 07:00 Intake Total 475 ml 850 ml 654 ml Output Total 700 ml 1100 ml Balance 475 ml 150 ml -446 ml Exam Constitutional: alert, oriented, well developed Psych: nl mood/affect, no complaints Head: atraumatic, normocephalic Eyes: PERRL, icteric, nl conjunctiva, nl lids ENMT: mucosa pink and moist, nl external ears & nose, nl nasal mucosa & septum Neck: non-tender, supple Respiratory: clear to auscultation, normal air movement Cardiovascular: nl pulses, regular rate and rhythm Gastrointestinal: bowel sounds, nl liver, spleen, non-tender, soft, No rebound or guarding Musculoskeletal: nl extremities to inspection, nl gait and stance Extremities: normal pulses Neurological: [employer] II-XII intact, nl mental status, nl speech, nl strength Skin: nl turgor, other (jaundice), No rash or lesions Lymph: nl lymph nodes Results Result Diagram: 01/07/175 01/07/17 0425 Results 24 hrs Laboratory Tests Test 01/07/17 04:24 01/07/17 04:25 Hemoglobin A1c 4.8 White Blood Count 2.0 #L Red Blood Count 3.52 L Hemoglobin 9.9 L Hematocrit 28.3 L Mean Corpuscular Volume 80.4 L Mean Corpuscular Hemoglobin 28.1 L Mean Corpuscular Hemoglobin Concent 35.0 Red Cell Distribution Width 19.7 H Platelet Count 75 #L Mean Platelet Volume 10.5 H Neutrophils % Segmented Neutrophils % (Manual) 71 Lymphocytes % Lymphocytes % (Manual) 17 Monocytes % Monocytes % (Manual) 3 Eosinophils % Eosinophils % (Manual) 6 Basophils % Basophils % (Manual) 3 H Nucleated Red Blood Cells % 0.0 Neutrophils # Absolute Lymphocytes (Manual) 0.3 L Lymphocytes # Monocytes # Absolute Monocytes (Manual) 0.0 L Eosinophils # Basophils # Basophils # (Manual) 0.0 Nucleated Red Blood Cells # Smudge Cells % 60 H Thrombocytosis 3 H Platelet Estimate SIG DECREASED Polychromasia 3+ Hypochromasia 3+ Poikilocytosis 1+ Anisocytosis 2+ Macrocytosis 1+ Target Cells 2+ Sodium Level 137 Potassium Level 3.0 L Chloride Level 104 Carbon Dioxide Level 26 Anion Gap 10 # Blood Urea Nitrogen 7 Creatinine 0.80 Glucose Level 72 Calcium Level 7.0 L Phosphorus Level 2.8 Magnesium Level 1.5 L Total Bilirubin 8.1 H Direct Bilirubin 6.60 H Indirect Bilirubin 1.5 H Aspartate Amino Transf (AST/SGOT) 209 H Alanine Aminotransferase (ALT/SGPT) 91 H Alkaline Phosphatase 186 H Total Protein 5.3 #L Albumin 2.2 L Globulin 3.10 Albumin/Globulin Ratio 0.70 Triglycerides Level 295 H Cholesterol Level 118 LDL Cholesterol, Calculated 47 HDL Cholesterol 12 L Cholesterol/HDL Ratio 9.8 Thyroid Stimulating Hormone (TSH) 0.659 Free Thyroxine Index 1.63 Thyroxine (T4) 2.5 L Triiodothyronine (T3) Uptake > 65.0 H Medications Medications Current Medications Sodium Chloride (NS) 1,000 ml @ 75 mls/hr [id number] IV Last administered on 01/07t 08:59; Admin Dose 75 MLS/HR; Start 01/06/17 at 01:23 Ondansetron HCl (Zofran Inj) 4 mg Q6H PRN IV NAUSEA AND/OR VOMITING; Start at 01:30 Acetaminophen (Tylenol Tab) 650 mg Q6H PRN PO PAIN LEVEL 1-3 OR FEVER; Start at 01:30 Morphine Sulfate (morphine) 2 mg Q4H PRN IV SEVERE PAIN LEVEL 7-10; Start 01/06 at 01:30 Docusate Sodium (Colace) 100 mg Q12H PRN PO CONSTIPATION; Start 01/06/17 at 01: 30 Bisacodyl 5 mg 5 mg DAILY PRN PO CONSTIPATION; Start 01/06/17 at 01:30 Piperacillin Sod/ Tazobactam Sod (Zosyn 3.375gm/ 100 ml (Pmx)) 100 ml @ 200 mls /hr Q6 IVPB Last administered on 01/07/17 11:32; Admin Dose 200 MLS/HR; Start 01/06/17 at 06:00 Lorazepam 1 mg 1 mg Q6H PRN IM AGITATION/ANXIETY; Start 01/06/17 at 02:00 Multivitamins/ Thiamine HCl/ Folic Acid/Sodium Chloride (Mvi Adult/ Vitamin B1/ Folic Acid/NS) 1,011.2 ml @ 125 mls/ hr DAILY@09 IVPB Last administered on 08:57; Admin Dose 125 MLS/HR; Start 01/06/17 at 09:00 Chlordiazepoxide (Librium) 25 mg QID PO Last administered on 01/07/17 12:41; Admin Dose 25 MG; Start 01/07/17 at 09:00; Stop 01/08/17 at 08:59 Chlordiazepoxide 25 mg 25 mg TID PO ; Start 01/08/17 at 09:00; Stop 01/09/17 at 08:59 Potassium Chloride (KCl 40 MEQ/250 ML NS) 250 ml @ 62.5 mls/hr Q4H IVPB Last administered on 01/07/17 11:40; Admin Dose 62.5 MLS/HR; Start 01/07/17 at 11:00 ; Stop 01/07/17 at 18:59 DORIS SCHULTE MD Jan 07, 2017 13:16
[2017-01-07 15:12] VITALS: BP 126/80; RESP 18
[2017-01-07 19:05] VITALS: BP 141/81; RESP 18
[2017-01-08] MEDS: PIPER-TAZO 3.375 GM IV (PMX) 100 ML IVPB SCH ×4 (00:27→17:58)
[2017-01-08 02:00] VITALS: BP 108/64; RESP 18
[2017-01-08 05:38] LABS: ABNORMAL IP MESSAGE 1; HEMATOCRIT 29.9 % (42.0-52.0); HEMOGLOBIN 9.9 g/dl (14.0-18.0); MEAN CORPUSCULAR HEMOGLOBIN 27.3 pg (29.0-33.0); MEAN CORPUSCULAR HGB CONC 33.1 g/dl (32.0-37.0); MEAN CORPUSCULAR VOLUME 82.4 fl (82.0-101.0); MEAN PLATELET VOLUME 11.7 fl (7.4-10.4); POSITIVE DIFF @See below; RED BLOOD COUNT 3.63 10^6/ul (4.70-6.10); RED CELL DISTRIBUTION WIDTH 20.3 % (11.5-14.5); WHITE BLOOD COUNT 2.4 10^3/ul (4.8-10.8)
[2017-01-08 06:09] LABS: MAGNESIUM 1.8 mg/dl (1.7-2.5); PHOSPHORUS 2.4 mg/dl (2.5-4.9)
[2017-01-08 06:11] LABS: ALBUMIN 2.1 g/dl (3.3-4.9); BILIRUBIN,DIRECT 7.3 mg/dl (0.00-0.20); BILIRUBIN,INDIRECT 1.4 mg/dl (0-1.1); BILIRUBIN,TOTAL 8.7 mg/dl (0.2-1.3); TOTAL PROTEIN 5.2 g/dl (6.1-8.1)
[2017-01-08 06:13] LABS: PLATELET COUNT 95 10^3/UL (140-415)
[2017-01-08] MEDS: SOD CHLORIDE 0.9% 1,000 ML IV SCH ×2 (06:43→08:30)
[2017-01-08 07:52] LABS: ANISOCYTOSIS 2+ (0-0); BASOPHILS % (M) 1 % (0-2); EOSINOPHILS % (M) 2 % (0-7); GIANT THROMBO% (M) 1 % (0-0); HYPOCHROMASIA 3+ (0-0); MICROCYTOSIS 1+ (0-0); MONOCYTES % (M) 4 % (0-11); POIKILOCYTOSIS 1+ (0-0); POLYCHROMASIA 3+ (0-0)
[2017-01-08 08:06] VITALS: BP 124/75; RESP 16
[2017-01-08] MEDS: METHYLPREDNISOLONE 4 MG TAB PO SCH (08:29)
[2017-01-08] MEDS: CHLORDIAZEPOXIDE 25 MG CAP PO SCH ×3 (08:29→20:53)
[2017-01-08] MEDS: MULTIVITAMINS 10 ML, THIAMINE 100 MG, FOLIC ACID 1 MG in SOD CHLORIDE 0.9% 1,000 ML IVPB SCH (08:30)
--- NOTE | 2017-01-08 11:53 | PN ---
Date/Time of Note Date/Time of Note DATE: 01/08/17 TIME: 11:47 Assessment/Plan Lines/Catheters IV Catheter Type (from [facility]): Peripheral IV Ascencio in Place (from [facility]): No Assessment/Plan Chief Complaint/Hosp Course 1. Transaminitis, hyperbilirubinemia, gallbladder wall thickening, pericholecystic fluid, fatty liver are all probably secondary to alcoholic liver disease/failure. Patient afebrile, no abdominal pain,negative do's, unlikely cholecystitis.Transaminitis improving; +bowel function; on steroids -Encourage alcoholic cessation and rehab -GI consultation and treatment -Trend labs -no surgical intervention recommended at this time, will continue to monitor 2. Alcoholism -Highly encouraged to seek rehab and treatment to prevent further injury 3. Coagulopathy secondary to above -As above -Correct as needed 4. Pancytopenia secondary to above -supportive -As above 5. Hypoalbuminemia secondary to liver disease, alcoholism, possible malnutrition -As above -Encourage nutritional optimization 6. Hypokalemia -Replete and correct as needed 7. Hypocalcemia with hypoalbuminemia -nutrition optimization 8. Constipation -optimize bowel regimen Patient seen and examined in collaboration with Dr.Samuel Faulkner. Problems: Subjective 24 Hr Interval Summary Patient feeling well. + bowel function. tolerating diet. No abdominal pain. No c /o tran, dizziness, cp, palpitations, n/v/d, fevers, chills. Exam/Review of Systems Vital Signs Vitals Vital Signs Date Time Temp Pulse Resp B/P Pulse Ox O2 Delivery O2 Flow Rate FiO2 01/08/17 08:06 97.9 83 16 124/75 96 01/06/17 01:21 Room Air Intake and Output 01/07/17 01/07/17 01/08/17 15:00 23:00 07:00 Intake Total 150 ml 2211.2 ml 1280 ml Output Total 900 ml 800 ml Balance 150 ml 1311.2 ml 480 ml Exam Free Text/Dictation Constitutional: alert, oriented, No distress Psych: nl mood/affect, Head: atraumatic, normocephalic, Eyes: EOMI, PERRL, icteric ENMT: nl external ears & nose, nl lips & teeth, nl nasal mucosa & septum Neck: non-tender, supple, Respiratory: normal air movement, Cardiovascular: regular rate and rhythm, No edema Gastrointestinal: nondistended, non-tender, soft, negative murphys No rebound or guarding Genitourinary - Male: nl penis, nl scrotum Musculoskeletal: nl extremities to inspection, nl gait and stance, No joint tenderness Extremities: normal pulses, No calf tenderness, No cyanosis Neurological: nl mental status, nl speech, nl strength Skin: nl turgor, rash or lesions (Jaundice), No diaphoresis Lymph: nl lymph nodes Results Result Diagram: 01/08/17 0449 01/07/17 0425 KRYSTIN FOWLER NP Jan 08, 2017 11:53
[2017-01-08 14:02] VITALS: BP 112/18; RESP 16
[2017-01-08 14:45] LABS: CALCIUM 7.5 mg/dl (8.4-10.2); CREATININE 0.68 mg/dl (0.61-1.24); POTASSIUM 3.8 mmol/L (3.5-5.1)
--- NOTE | 2017-01-08 16:23 | PN ---
Date/Time of Note Date/Time of Note DATE: 01/08/17 TIME: 16:19 Assessment/Plan VTE Prophylaxis VTE Prophylaxis Intervention: SCD's Lines/Catheters IV C[facility]ter Type (from [facility] Peripheral IV Urinary Cath still in place: No Assessment/Plan Assessment/Plan Assessment * Jaundice T/C alcoholic hepatitis vs autoimmune hepatitis * alcoholism chronic Plan * Trend liver enzymes * Continue present medications * Maddrey score is 45 and patient will benefit from steroid therapy for 30 days * Will request MORRIS,ANSA,ANCA,smooth muscle antibody titer * Counselled on abstinence of alcohol * Further orders will depend on clinical course Subjective 24 Hr Interval Summary Free Text/Dictation * Course reviewed with RN * Patient seen and examined * No untoward events overnight * MORRIS(-),,smooth muscle antibody positive Exam/Review of Systems Vital Signs Vitals Vital Signs Date Time Temp Pulse Resp B/P Pulse Ox O2 Delivery O2 Flow Rate FiO2 01/08/17 14:02 97.7 69 16 112/18 95 01/06/17 01:21 Room Air Intake and Output 01/07/17 01/07/17 01/08/17 15:00 23:00 07:00 Intake Total 150 ml 2211.2 ml 1280 ml Output Total 900 ml 800 ml Balance 150 ml 1311.2 ml 480 ml Exam Constitutional: alert, oriented Eyes: icteric Neck: non-tender, supple Respiratory: clear to auscultation, normal air movement Cardiovascular: nl pulses, regular rate and rhythm Gastrointestinal: nl liver, spleen, non-tender, soft Musculoskeletal: nl extremities to inspection, nl gait and stance Extremities: normal pulses Neurological: nl speech, nl strength Skin: rash or lesions Lymph: nl lymph nodes Results Result Diagram: 01/08/17 0449 01/08/17 1411 Results 24 hrs Laboratory Tests Test 01/08/17 04:49 01/08/17 14:11 White Blood Count 2.4 L Red Blood Count 3.63 L Hemoglobin 9.9 L Hematocrit 29.9 L Mean Corpuscular Volume 82.4 Mean Corpuscular Hemoglobin 27.3 L Mean Corpuscular Hemoglobin Concent 33.1 Red Cell Distribution Width 20.3 H Platelet Count 95 #L Mean Platelet Volume 11.7 H Neutrophils % Segmented Neutrophils % (Manual) 67 Lymphocytes % Lymphocytes % (Manual) 26 Monocytes % Monocytes % (Manual) 4 Eosinophils % Eosinophils % (Manual) 2 Basophils % Basophils % (Manual) 1 Nucleated Red Blood Cells % 0.0 Neutrophils # Absolute Lymphocytes (Manual) 0.6 L Lymphocytes # Monocytes # Absolute Monocytes (Manual) 0.0 L Eosinophils # Basophils # Basophils # (Manual) 0.0 Nucleated Red Blood Cells # Smudge Cells % 27 H Thrombocytosis 1 H Polychromasia 3+ Hypochromasia 3+ Poikilocytosis 1+ Anisocytosis 2+ Microcytosis 1+ Macrocytosis 1+ Phosphorus Level 2.4 L Magnesium Level 1.8 Total Bilirubin 8.7 H Direct Bilirubin 7.30 H Indirect Bilirubin 1.4 H Aspartate Amino Transf (AST/SGOT) 172 H Alanine Aminotransferase (ALT/SGPT) 87 H Alkaline Phosphatase 187 H Total Protein 5.2 L Albumin 2.1 L Sodium Level 138 Potassium Level 3.8 Chloride Level 104 Carbon Dioxide Level 25 Anion Gap 13 Blood Urea Nitrogen 2 L Creatinine 0.68 Glucose Level 161 Calcium Level 7.5 L Medications Medications Current Medications Sodium Chloride (NS) 1,000 ml @ 75 mls/hr [id number] IV Last administered on 01/08 08:30; Admin Dose 75 MLS/HR; Start 01/06/17 at 01:23 Ondansetron HCl (Zofran Inj) 4 mg Q6H PRN IV NAUSEA AND/OR VOMITING; Start at 01:30 Acetaminophen (Tylenol Tab) 650 mg Q6H PRN PO PAIN LEVEL 1-3 OR FEVER; Start at 01:30 Morphine Sulfate (morphine) 2 mg Q4H PRN IV SEVERE PAIN LEVEL 7-10; Start 01/06 at 01:30 Docusate Sodium (Colace) 100 mg Q12H PRN PO CONSTIPATION; Start 01/06/17 at 01: 30 Bisacodyl 5 mg 5 mg DAILY PRN PO CONSTIPATION; Start 01/06/17 at 01:30 Piperacillin Sod/ Tazobactam Sod (Zosyn 3.375gm/ 100 ml (Pmx)) 100 ml @ 200 mls /hr Q6 IVPB Last administered on 01/08/17 11:55; Admin Dose 200 MLS/HR; Start 01/06/17 at 06:00 Lorazepam 1 mg 1 mg Q6H PRN IM AGITATION/ANXIETY; Start 01/06/17 at 02:00 Multivitamins/ Thiamine HCl/ Folic Acid/Sodium Chloride (Mvi Adult/ Vitamin B1/ Folic Acid/NS) 1,011.2 ml @ 125 mls/ hr DAILY@09 IVPB Last administered on 08:30; Admin Dose 125 MLS/HR; Start 01/06/17 at 09:00 Chlordiazepoxide (Librium) 25 mg TID PO Last administered on 01/08/17 08:29; Admin Dose 25 MG; Start 01/08/17 at 09:00; Stop 01/09/17 at 08:59 Methylprednisolone (Medrol) 32 mg DAILY PO Last administered on 01/08/17 08:29 ; Admin Dose 32 MG; Start 01/08/17 at 09:00; Stop 02/04/17 at 13:26 DADA OLIVEIRA NP Jan 08, 2017 16:23
[2017-01-08 21:43] VITALS: BP 124/76; RESP 18
[2017-01-08 21:48] VITALS: BP 119/64; RESP 19
--- NOTE | 2017-01-08 22:40 | PN ---
Date/Time of Note Date/Time of Note DATE: 01/08/17 TIME: 22:38 Assessment/Plan VTE Prophylaxis VTE Prophylaxis Intervention: SCD's Lines/Catheters [facility] Type (from [facility]): Peripheral IV Urinary Cath still in place: No Assessment/Plan Assessment/Plan #1 acalculous cholecystitis: Abdominal ultrasound: Gallbladder wall thickening and mild pericholecystic fluid, but no evidence of cholelithiasis. These findings are nonspecific, but may relate to acalculous cholecystitis, liver failure, heart failure, or pancreatitis. MRCP negative for common bile duct stones. Surgery team has evaluated the patient.` -For now continue Zosyn IV. Keep the patient n.p.o. -We will also consult GI as well, per surgery team medical management for now #2 Painless jaundice: Patient appears to have an obstructive pattern with his LFTs and elevated bilirubin, both total and direct. Ultrasound did not show any signs of biliary dilatation or gallstones. Surgery has already been consulted for possible acalculous cholecystitis. Patient does have a significant history of alcohol use, as well as elevated ethanol levels. -Follow-up hepatitis panel as well as additional hepatic/GI set of labs. Depending on the findings patient may need a liver biopsy as well. #3 alcohol abuse: Patient has a significant alcohol history, again, ethanol level is elevated at the current time he does not appear to be in any withdrawal symptoms or DTs. -Continue Ativan 1 mg every 6 hours as needed for withdrawal, banana bag daily as well as Librium. #4 Microcytic anemia follow-up iron studies this likely could be related to patient's chronic alcohol use. #5 Elevated blood pressure readings: We will continue to monitor for signs of hypertension and start medications if indicated. #6 Abnormal coagulation studies: INR 1.7 and elevated PTT and PT this likely to be secondary to underlying possible liver disease. Will initiate further workup for underlying liver disease as per #2, if negative, proceed further with hematology/oncology if indicated. #7 DVT and GI prophylaxis: SCDs, Protonix Subjective 24 Hr Interval Summary Free Text/Dictation stated that he is feeling better, but c/o generalized weakness Exam/Review of Systems Vital Signs Vitals Vital Signs Date Time Temp Pulse Resp B/P Pulse Ox O2 Delivery O2 Flow Rate FiO2 01/08/17 21:48 98.2 69 19 119/64 95 01/06/17 01:21 Room Air Intake and Output 01/07/17 01/07/17 01/08/17 15:00 23:00 07:00 Intake Total 150 ml 2211.2 ml 1280 ml Output Total 900 ml 800 ml Balance 150 ml 1311.2 ml 480 ml Exam Constitutional: alert, oriented, well developed Head: atraumatic, normocephalic Eyes: EOMI, PERRL Respiratory: clear to auscultation, normal air movement Cardiovascular: nl pulses, regular rate and rhythm Gastrointestinal: soft Extremities: normal pulses Results Result Diagram: 01/08/17 0449 01/08/17 1411 Results 24 hrs Laboratory Tests Test 01/08/17 04:49 01/08/17 14:11 White Blood Count 2.4 L Red Blood Count 3.63 L Hemoglobin 9.9 L Hematocrit 29.9 L Mean Corpuscular Volume 82.4 Mean Corpuscular Hemoglobin 27.3 L Mean Corpuscular Hemoglobin Concent 33.1 Red Cell Distribution Width 20.3 H Platelet Count 95 #L Mean Platelet Volume 11.7 H Neutrophils % Segmented Neutrophils % (Manual) 67 Lymphocytes % Lymphocytes % (Manual) 26 Monocytes % Monocytes % (Manual) 4 Eosinophils % Eosinophils % (Manual) 2 Basophils % Basophils % (Manual) 1 Nucleated Red Blood Cells % 0.0 Neutrophils # Absolute Lymphocytes (Manual) 0.6 L Lymphocytes # Monocytes # Absolute Monocytes (Manual) 0.0 L Eosinophils # Basophils # Basophils # (Manual) 0.0 Nucleated Red Blood Cells # Smudge Cells % 27 H Thrombocytosis 1 H Polychromasia 3+ Hypochromasia 3+ Poikilocytosis 1+ Anisocytosis 2+ Microcytosis 1+ Macrocytosis 1+ Phosphorus Level 2.4 L Magnesium Level 1.8 Total Bilirubin 8.7 H Direct Bilirubin 7.30 H Indirect Bilirubin 1.4 H Aspartate Amino Transf (AST/SGOT) 172 H Alanine Aminotransferase (ALT/SGPT) 87 H Alkaline Phosphatase 187 H Total Protein 5.2 L Albumin 2.1 L Sodium Level 138 Potassium Level 3.8 Chloride Level 104 Carbon Dioxide Level 25 Anion Gap 13 Blood Urea Nitrogen 2 L Creatinine 0.68 Glucose Level 161 Calcium Level 7.5 L Medications Medications Current Medications Sodium Chloride (NS) 1,000 ml @ 75 mls/hr [id number] IV Last administered on 01/08 08:30; Admin Dose 75 MLS/HR; Start 01/06/17 at 01:23 Ondansetron HCl (Zofran Inj) 4 mg Q6H PRN IV NAUSEA AND/OR VOMITING; Start at 01:30 Acetaminophen (Tylenol Tab) 650 mg Q6H PRN PO PAIN LEVEL 1-3 OR FEVER; Start at 01:30 Morphine Sulfate (morphine) 2 mg Q4H PRN IV SEVERE PAIN LEVEL 7-10; Start 01/06 at 01:30 Docusate Sodium (Colace) 100 mg Q12H PRN PO CONSTIPATION; Start 01/06/17 at 01: 30 Bisacodyl 5 mg 5 mg DAILY PRN PO CONSTIPATION; Start 01/06/17 at 01:30 Piperacillin Sod/ Tazobactam Sod (Zosyn 3.375gm/ 100 ml (Pmx)) 100 ml @ 200 mls /hr Q6 IVPB Last administered on 01/08/17 17:58; Admin Dose 200 MLS/HR; Start 01/06/17 at 06:00 Lorazepam 1 mg 1 mg Q6H PRN IM AGITATION/ANXIETY; Start 01/06/17 at 02:00 Multivitamins/ Thiamine HCl/ Folic Acid/Sodium Chloride (Mvi Adult/ Vitamin B1/ Folic Acid/NS) 1,011.2 ml @ 125 mls/ hr DAILY@09 IVPB Last administered on 08:30; Admin Dose 125 MLS/HR; Start 01/06/17 at 09:00 Chlordiazepoxide (Librium) 25 mg TID PO Last administered on 01/08/17 20:53; Admin Dose 25 MG; Start 01/08/17 at 09:00; Stop 01/09/17 at 08:59 Methylprednisolone (Medrol) 32 mg DAILY PO Last administered on 01/08/17 08:29 ; Admin Dose 32 MG; Start 01/08/17 at 09:00; Stop 02/04/17 at 13:26 OLGA MERINO MD Jan 08, 2017 22:40
[2017-01-09] MEDS: PIPER-TAZO 3.375 GM IV (PMX) 100 ML IVPB SCH ×3 (00:03→12:40)
[2017-01-09 02:06] VITALS: BP 122/82; RESP 18
[2017-01-09 05:16] LABS: ABNORMAL IP MESSAGE 1; HEMATOCRIT 28.2 % (42.0-52.0); HEMOGLOBIN 9.4 g/dl (14.0-18.0); LYMPHOCYTES # 0.3 10^3/ul (0.8-2.9); LYMPHOCYTES % 11.9 % (15.0-51.0); MEAN CORPUSCULAR HEMOGLOBIN 27.3 pg (29.0-33.0); MEAN CORPUSCULAR HGB CONC 33.3 g/dl (32.0-37.0); MONOCYTE # 0.2 10^3/ul (0.3-0.9); MONOCYTES % 7.8 % (0.0-11.0); NEUTROPHIL # 2.1 10^3/ul (1.6-7.5); NEUTROPHILS % 79.2 % (39.0-77.0); PLATELET COUNT 97 10^3/UL (140-415); POSITIVE DIFF @See below; RED BLOOD COUNT 3.44 10^6/ul (4.70-6.10); RED CELL DISTRIBUTION WIDTH 20.6 % (11.5-14.5); WHITE BLOOD COUNT 2.7 10^3/ul (4.8-10.8)
[2017-01-09 05:43] LABS: ALBUMIN 2.2 g/dl (3.3-4.9); ALBUMIN/GLOBULIN RATIO 0.68; BILIRUBIN,DIRECT 6.7 mg/dl (0.00-0.20); BILIRUBIN,INDIRECT 1.3 mg/dl (0-1.1); CALCIUM 7.8 mg/dl (8.4-10.2); CREATININE 0.77 mg/dl (0.61-1.24); POTASSIUM 3.9 mmol/L (3.5-5.1); TOTAL PROTEIN 5.4 g/dl (6.1-8.1)
[2017-01-09] MEDS: SOD CHLORIDE 0.9% 1,000 ML IV SCH (06:59)
[2017-01-09 07:59] VITALS: BP 106/66; RESP 16
--- NOTE | 2017-01-09 08:30 | PN ---
Date/Time of Note Date/Time of Note DATE: 01/09/17 TIME: 08:19 Assessment/Plan Lines/Catheters IV Catheter Type (from [facility]): Peripheral IV Ascencio in Place (from [facility]): No Assessment/Plan Chief Complaint/Hosp Course 1. Transaminitis, hyperbilirubinemia, gallbladder wall thickening, pericholecystic fluid, fatty liver are all probably secondary to alcoholic liver disease/failure. Patient afebrile, no abdominal pain,negative do's, unlikely cholecystitis.Transaminitis improving; +bowel function; on steroids -Encourage alcoholic cessation and rehab -per GI -Trend labs -no surgical intervention recommended at this time, will continue to monitor 2. Alcoholism -Highly encouraged to seek rehab and treatment to prevent further injury 3. Coagulopathy secondary to above -As above -Correct as needed 4. Pancytopenia secondary to above -supportive -As above 5. Hypoalbuminemia secondary to liver disease, alcoholism, possible malnutrition -As above -Encourage nutritional optimization 6. Hypokalemia -Replete and correct as needed 7. Hypocalcemia with hypoalbuminemia -nutrition optimization 8. Constipation: improved -optimize bowel regimen Patient seen and examined in collaboration with Dr.Samuel Faulkner. Problems: Subjective 24 Hr Interval Summary Afebrile. Tolerating diet. No c/o abdominal pain. No c/o tran, dizziness, sz, sob , cough, n/v/d, fevers, chills. No bleeding. +bowel function Exam/Review of Systems Vital Signs Vitals Vital Signs Date Time Temp Pulse Resp B/P Pulse Ox O2 Delivery O2 Flow Rate FiO2 01/09/17 07:59 97.8 66 16 106/66 95 01/06/17 01:21 Room Air Intake and Output 01/08/17 01/08/17 01/09/17 15:00 23:00 07:00 Intake Total 300 ml 2031.2 ml 1270 ml Output Total 600 ml 700 ml Balance 300 ml 1431.2 ml 570 ml Exam Free Text/Dictation Constitutional: alert, oriented, No distress Psych: nl mood/affect, Head: atraumatic, normocephalic, Eyes: EOMI, PERRL, icteric ENMT: nl external ears & nose, nl lips & teeth, nl nasal mucosa & septum Neck: non-tender, supple, Respiratory: normal air movement, Cardiovascular: regular rate and rhythm, No edema Gastrointestinal: nondistended, non-tender, soft, negative murphys No rebound or guarding Genitourinary - Male: nl penis, nl scrotum Musculoskeletal: nl extremities to inspection, nl gait and stance, No joint tenderness Extremities: normal pulses, No calf tenderness, No cyanosis Neurological: nl mental status, nl speech, nl strength Skin: nl turgor, rash or lesions (Jaundice), No diaphoresis Lymph: nl lymph nodes Results Result Diagram: 01/09/17 0439 01/09/17 0439 KRYSTIN FOWLER NP Jan 09, 2017 08:30
[2017-01-09] MEDS: METHYLPREDNISOLONE 4 MG TAB PO SCH (09:13)
[2017-01-09] MEDS: MULTIVITAMINS 10 ML, THIAMINE 100 MG, FOLIC ACID 1 MG in SOD CHLORIDE 0.9% 1,000 ML IVPB SCH (09:13)
--- NOTE | 2017-01-09 12:48 | PN ---
Date/Time of Note Date/Time of Note DATE: 01/09/17 TIME: 12:45 Assessment/Plan VTE Prophylaxis VTE Prophylaxis Intervention: SCD's Lines/Catheters IV [facility]ter Type (from [facility]): Peripheral IV Urinary Cath still in place: No Assessment/Plan Assessment/Plan Assessment * Jaundice/likely hepatocellular Alcoholic hepatitis * Alcoholism chronic Plan * Continue present regimen * Monitor liver function tests * Patient appears safe for outpatient management * Completed 28 days of prednisolone and then discontinue * Abstinence paramount to patient's well-being Subjective 24 Hr Interval Summary Free Text/Dictation Course reviewed with nursing staff Patient reports feeling much better Tolerating diet without difficulty Remains jaundice It appears to understand the significance of abstinence in his well-being On prednisolone for alcoholic hepatitis Appears safe for outpatient follow-up Exam/Review of Systems Vital Signs Vitals Vital Signs Date Time Temp Pulse Resp B/P Pulse Ox O2 Delivery O2 Flow Rate FiO2 01/09/17 07:59 97.8 66 16 106/66 95 01/06/17 01:21 Room Air Intake and Output 01/08/17 01/08/17 01/09/17 15:00 23:00 07:00 Intake Total 300 ml 2031.2 ml 1270 ml Output Total 600 ml 700 ml Balance 300 ml 1431.2 ml 570 ml Exam Constitutional: alert, oriented, other (Jaundiced), well developed Psych: nl mood/affect, no complaints Head: atraumatic, normocephalic Eyes: EOMI, PERRL, nl conjunctiva, nl lids, nl sclera ENMT: nl external ears & nose, nl lips & teeth, nl nasal mucosa & septum Neck: non-tender, supple Respiratory: clear to auscultation, normal air movement Cardiovascular: nl pulses, regular rate and rhythm Gastrointestinal: nl liver, spleen, non-tender, soft Musculoskeletal: nl extremities to inspection, nl gait and stance Extremities: normal pulses Neurological: [employer] II-XII intact, nl mental status, nl speech, nl strength Skin: nl turgor, No rash or lesions Lymph: nl lymph nodes Results Result Diagram: 01/09/17 0439 01/09/17 0439 Results 24 hrs Laboratory Tests Test 01/08/17 14:11 01/09/17 04:39 Sodium Level 138 142 Potassium Level 3.8 3.9 Chloride Level 104 107 Carbon Dioxide Level 25 27 Anion Gap 13 12 Blood Urea Nitrogen 2 L 3 L Creatinine 0.68 0.77 Glucose Level 161 155 Calcium Level 7.5 L 7.8 L White Blood Count 2.7 L Red Blood Count 3.44 L Hemoglobin 9.4 L Hematocrit 28.2 L Mean Corpuscular Volume 82.0 Mean Corpuscular Hemoglobin 27.3 L Mean Corpuscular Hemoglobin Concent 33.3 Red Cell Distribution Width 20.6 H Platelet Count 97 L Mean Platelet Volume 11.0 H Neutrophils % 79.2 H Lymphocytes % 11.9 L Monocytes % 7.8 Eosinophils % 0.0 Basophils % 0.0 Nucleated Red Blood Cells % 0.0 Neutrophils # 2.1 Lymphocytes # 0.3 L Monocytes # 0.2 L Eosinophils # 0.0 Basophils # 0.0 Nucleated Red Blood Cells # 0.0 Total Bilirubin 8.0 H Direct Bilirubin 6.70 H Indirect Bilirubin 1.3 H Aspartate Amino Transf (AST/SGOT) 118 H Alanine Aminotransferase (ALT/SGPT) 78 H Alkaline Phosphatase 174 H Total Protein 5.4 L Albumin 2.2 L Globulin 3.20 Albumin/Globulin Ratio 0.68 Medications Medications Current Medications Sodium Chloride (NS) 1,000 ml @ 75 mls/hr [id number] IV Last administered on 01/09 06:59; Admin Dose 75 MLS/HR; Start 01/06/17 at 01:23 Ondansetron HCl (Zofran Inj) 4 mg Q6H PRN IV NAUSEA AND/OR VOMITING; Start at 01:30 Acetaminophen (Tylenol Tab) 650 mg Q6H PRN PO PAIN LEVEL 1-3 OR FEVER; Start at 01:30 Morphine Sulfate (morphine) 2 mg Q4H PRN IV SEVERE PAIN LEVEL 7-10; Start 01/06 at 01:30 Docusate Sodium (Colace) 100 mg Q12H PRN PO CONSTIPATION; Start 01/06/17 at 01: 30 Bisacodyl 5 mg 5 mg DAILY PRN PO CONSTIPATION; Start 01/06/17 at 01:30 Piperacillin Sod/ Tazobactam Sod (Zosyn 3.375gm/ 100 ml (Pmx)) 100 ml @ 200 mls /hr Q6 IVPB Last administered on 01/09/17 12:40; Admin Dose 200 MLS/HR; Start 01/06/17 at 06:00 Lorazepam 1 mg 1 mg Q6H PRN IM AGITATION/ANXIETY; Start 01/06/17 at 02:00 Multivitamins/ Thiamine HCl/ Folic Acid/Sodium Chloride (Mvi Adult/ Vitamin B1/ Folic Acid/NS) 1,011.2 ml @ 125 mls/ hr DAILY@09 IVPB Last administered on 09:13; Admin Dose 125 MLS/HR; Start 01/06/17 at 09:00 Methylprednisolone (Medrol) 32 mg DAILY PO Last administered on 01/09/17 09:13 ; Admin Dose 32 MG; Start 01/08/17 at 09:00; Stop 02/04/17 at 13:26 DORIS SCHULTE MD Jan 09, 2017 12:48
[2017-01-09] MEDS ORDERED: METH32TA2 PO (13:01)
--- NOTE | 2017-01-09 13:02 | PDOCDIS ---
Discharge Instructions CONDITION Patient Condition: Stable HOME CARE INSTRUCTIONS: Diet Instructions: Regular ACTIVITY: Activity Restrictions: Slowly Increase Activity FOLLOW UP/APPOINTMENTS Follow-up Plan Follow-up with a primary care doctor. Complete abstinence from alcohol is strongly advised OTHER ORDERS: Other Orders: Call 911 and go to the nearest emergency department if you have severe abdominal pain, nausea/vomiting, fever/chills, bleeding of any kind, shortness of breath or chest pain. OLGA MERINO MD Jan 09, 2017 13:02
== END 2017-01-09 18:25 | disposition home or self-care (01) | DRG 444 ==
LOC: FTE 20:48 → MS1 01-06 00:11
PROVIDERS: ADMIT Family Medicine; ATTEND Family Medicine
DX: K81.9 Cholecystitis, unspecified (principal); K83.1 Obstruction of bile duct; D61.818 Other pancytopenia; D68.9 Coagulation defect, unspecified; R17 Unspecified jaundice; E87.8 Other disorders of electrolyte and fluid balance, not elsewhere classified; K82.9 Disease of gallbladder, unspecified; F10.10 Alcohol abuse, uncomplicated; D50.9 Iron deficiency anemia, unspecified; R03.0 Elevated blood-pressure reading, without diagnosis of hypertension; K70.10 Alcoholic hepatitis without ascites; K31.89 Other diseases of stomach and duodenum; R74.0 Nonspecific elevation of levels of transaminase and lactic acid dehydrogenase [LDH]; E16.2 Hypoglycemia, unspecified; E87.6 Hypokalemia; E88.09 Other disorders of plasma-protein metabolism, not elsewhere classified
CPT/HCPCS: 71010; 74181; 76705; 80048; 80053; 80061; 80076; 80306; 81001; 81003; 82103; 82390; 82607; 82728; 82746; 83036; 83540; 83690; 83735; 84100; 84425; 84436; 84443; 84466; 84479; 85025; 85610; 85730; 86038; 86255; 86704; 86706; 86708; 86709; 86803; 87340; J2543; J3411; J3475; J3480; J7030; J7509